=== PATIENT | female | born 1965 | race Two or more races ===

== ENCOUNTER 2016-12-26 15:25 | Emergency (ER) | payer MEDICAID ==
[~2016-12-26] VITALS: Ht 154.9 cm; Wt 135.2 kg
[2016-12-26 16:00] VITALS: BP 164/82
[2016-12-26] MEDS ORDERED: IBUPROFEN600 MG ORAL (16:59)
[2016-12-26] MEDS ORDERED: CYCLOBENZAPRINE10 MG ORAL (16:59)
[2016-12-26 17:00] VITALS: BP 158/83
[2016-12-26 17:07] VITALS: BP 158/83
--- NOTE | 2016-12-26 21:07 | Emergency Room Report ---
History of Present Illness General Chief Complaint: Chest Pain Source: Patient Present Illness HPI 51-year-old female presents ED for evaluation. Patient states she feels pain in her right shoulder which is radiating across her chest. Pain is an 8 at 10, sharp, worse with movement. Patient feels pain is worse with twisting and bending. Denies shortness of breath. Denies history of hypertension and diabetes. No other aggravating or relieving factors. Denies any other associated symptoms Allergies: Coded Allergies: No Known Allergies (Unverified , 12/26/16) Patient History Past Medical History: DM Past Surgical History: none Pertinent Family History: none Social History: Denies: alcohol use, drug use, smoking Last Menstrual Period: 12/16/16 Now: No : 3 Para: 3 Immunizations: UTD Reviewed Nursing Documentation: PMH: Agreed, PSxH: Agreed Nursing Documentation-PMH Past Medical History: No History, Except For Hx Cardiac Problems: No - 2 HERNIATED DISCS Hx Hypertension: No Hx Pacemaker: No Hx Asthma: No Hx COPD: No Hx Diabetes: Yes Hx Cancer: No Hx Gastrointestinal Problems: No Hx Dialysis: No History Of Psychiatric Problem: No Hx Neurological Problems: No Hx Cerebrovascular Accident: No Hx Seizures: No Review of Systems All Other Systems: negative except mentioned in HPI Physical Exam Vital Signs Date Time Temp Pulse Resp B/P Pulse Ox O2 Delivery O2 Flow Rate FiO2 12/26/16 15:29 98.1 95 22 164/82 96 Room Air Sp02 EP Interpretation: reviewed, normal General Appearance: no apparent distress, alert, GCS 15, non-toxic, obese Head: normocephalic ENT: normal ENT inspection Neck: normal inspection Respiratory: lungs clear, normal breath sounds, speaking full sentences, other - reproducible chest all pain Cardiovascular #1: regular rate, rhythm, no edema Gastrointestinal: normal inspection Rectal: deferred Genitourinary: no CVA tenderness Musculoskeletal: decreased range of motion - R shoulder, tender - R shoulder Neurologic: alert, oriented x3, responsive, motor strength/tone normal, sensory intact, speech normal Psychiatric: normal inspection Skin: normal inspection Lymphatic: normal inspection Medical Decision Making Diagnostic Impression: Primary Impression: Strain of chest wall Qualified Codes: S29.011A - Strain of muscle and tendon of front wall of thorax, initial encounter Additional Impression: Shoulder strain Qualified Codes: S46.911A - Strain of unspecified muscle, fascia and tendon at shoulder and upper arm level, right arm, initial encounter ER Course Hospital Course 51-year-old F presents to ED complaining of R shoulder pain and chest wall pain Differential diagnoses include: Fracture, dislocation, sprain, contusion Clinical course Patient placed on stretcher. After initial history and physical, I ordered EKG and R shoulder XRay EKG shows normal sinus no acute changes interpreted by me Shoulder x-ray unremarkable Clinical presentation consistent with shoulder strain and chest wall strain. Patient has no cardiac history with stable vitals. Reassurance given Diagnosis - strain of chest wall, shoulder strain Stable and discharged to home with prescription for Motrin, flexeril. apply heat. weight bear as tolerated. Followup with PMD. Return to ED if symptoms recur or worsen EKG Diagnostic Results Rate: normal Rhythm: NSR ST Segments: no acute changes ASA given to the pt in ED: No Rhythm Strip Diag. Results EP Interpretation: yes Rhythm: NSR, no PVC's, no ectopy Other X-Ray Diagnostic Results Other X-Ray Diagnostic Results : X-Ray ordered: R shoulder # of Views/Limited Vs Complete: 3 View Indication: Pain EP Interpretation: Yes Interpretation: no dislocation, no soft tissue swelling, no fractures Impression: No acute disease Interpreting ER Provider: Electronically signed by Johann Page MD Last Vital Signs Date Time Temp Pulse Resp B/P Pulse Ox O2 Delivery O2 Flow Rate FiO2 12/26/16 17:07 98.1 74 20 158/83 98 Room Air Status: improved Disposition: HOME, SELF-CARE Condition: Stable Scripts Cyclobenzaprine Hcl* (FLEXERIL*) 10 Mg Tablet 10 MG ORAL TID Y for Muscle Spasm, #20 TAB Prov: JOHANN PAGE M.D. 12/26/16 Ibuprofen* (MOTRIN*) 600 Mg Tablet 600 MG ORAL Q8H Y for For Pain, #30 TAB 0 Refills Prov: JOHANN PAGE M.D. 12/26/16 Patient Instructions: Chest Wall Pain, [id number] JOHANN PAGE M.D. Dec 26, 2016 21:07
--- NOTE | 2016-12-27 16:19 | Cardiology Report ---
APPROVED REPORT EKG Measurement Heart [id number] Normal sinus rhythm Normal ECG
--- NOTE | 2016-12-29 09:03 | Diagnostic Imaging Report ---
Indication: PAIN Technique: XRAY SHOULDER MIN 3V RIGHT Comparison: None. Findings: The osseous structures are intact. There is no fracture or destruction. The visualized joints are normal. The soft tissues are unremarkable. Impression: Normal.
== END 2016-12-26 17:07 | disposition home or self-care (01) ==
LOC: EMR 16:15
DX: S29.011A Strain of muscle and tendon of front wall of thorax, initial encounter (principal); S46.911A Strain of unspecified muscle, fascia and tendon at shoulder and upper arm level, right arm, initial encounter; E11.9 Type 2 diabetes mellitus without complications; E66.9 Obesity, unspecified; Z68.43 Body mass index [BMI] 50.0-59.9, adult; X58.XXXA Exposure to other specified factors, initial encounter; Y93.9 Activity, unspecified; Y92.9 Unspecified place or not applicable
CPT/HCPCS: 93005; 99284

== ENCOUNTER 2017-02-17 16:16 | Emergency (ER) | payer MEDICAID ==
[~2017-02-17] VITALS: Ht 154.9 cm; Wt 136.1 kg
[~2017-02-17 16:16] MED LIST: CYCLOBENZAPRINE10 MG ORAL; IBUPROFEN600 MG ORAL
[2017-02-17 16:49] VITALS: BP 145/80
--- NOTE | 2017-02-17 17:10 | Emergency Room Report ---
History of Present Illness General Chief Complaint: Female Urogenital Problems Source: Patient Present Illness HPI 51 YO Female presents to the ED c/o dysuria, bloating, and low abdominal/ uterine discomfort described as burning 8/10 in severity x 3 days. denies constipation or diarrhea, denies N/V/F/C. denies hematuria. pt. reports frequency. Pt. also reports cramping gas movement sensation, and increased flatulence since Wednesday. Pt. denies tenderness to the abdomen, she reports bladder fullness/ distention feeling with some burning. Denies blood in the stool, or dark tarry stools. Pt. reports hx of back surgery 20 years ago, pre- diabetic. Denies CP, Palpitations, LOC, AMS, dizziness, Changes in Vision, Sensation, paresthesias, or a sudden severe headache. Allergies: Coded Allergies: No Known Allergies (Unverified , 12/26/16) Patient History Past Medical History: see triage record Past Surgical History: none Pertinent Family History: none Last Menstrual Period: 01/26/17 Now: No : 3 Para: 3 Reviewed Nursing Documentation: PMH: Agreed, PSxH: Agreed Nursing Documentation-PMH Past Medical History: No History, Except For Hx Cardiac Problems: No - 2 HERNIATED DISCS Hx Hypertension: No Hx Pacemaker: No Hx Asthma: No Hx COPD: No Hx Diabetes: Yes Hx Cancer: No Hx Gastrointestinal Problems: No Hx Dialysis: No Hx Neurological Problems: No Hx Cerebrovascular Accident: No Hx Seizures: No Review of Systems All Other Systems: negative except mentioned in HPI Physical Exam Vital Signs Date Time Temp Pulse Resp B/P (MAP) Pulse Ox O2 Delivery O2 Flow Rate FiO2 02/17/17 16:49 97.7 81 20 145/80 97 Room Air Sp02 EP Interpretation: reviewed, normal General Appearance: no apparent distress, alert, GCS 15, non-toxic Head: normocephalic, atraumatic Eyes: bilateral eye normal inspection, bilateral eye PERRL ENT: hearing grossly normal, normal voice Neck: full range of motion Respiratory: lungs clear, normal breath sounds, speaking full sentences Cardiovascular #1: regular rate, rhythm Gastrointestinal: normal bowel sounds, non tender, soft, no guarding, no rebound, other - Negative Lowber signs, Negative MacBurney's sign, Negative Rosvigns Sign, Negative Psoas, No Peritoneal signs. Rectal: deferred Genitourinary: normal inspection, no CVA tenderness Musculoskeletal: back normal, gait/station normal, normal range of motion Neurologic: alert, oriented x3, responsive, motor strength/tone normal, sensory intact, speech normal Psychiatric: judgement/insight normal, memory normal, mood/affect normal Skin: normal color, no rash, warm/dry, well hydrated Lymphatic: no adenopathy Medical Decision Making PA Attestation Dr. diana is my supervising Physician whom patient management has been discussed with. Diagnostic Impression: Primary Impression: Urinary tract infection Qualified Codes: N30.01 - Acute cystitis with hematuria ER Course 51 YO Female presents to the ED c/o dysuria, bloating, and low abdominal/ uterine discomfort described as burning 8/10 in severity x 3 days. denies constipation or diarrhea, denies N/V/F/C. denies hematuria. pt. reports frequency. Pt. also reports cramping gas movement sensation, and increased flatulence since Wednesday. Pt. denies tenderness to the abdomen, she reports bladder fullness/ distention feeling with some burning. Denies blood in the stool, or dark tarry stools. Pt. reports hx of back surgery 20 years ago, pre- diabetic. Denies CP, Palpitations, LOC, AMS, dizziness, Changes in Vision, Sensation, paresthesias, or a sudden severe headache. Ddx considered but are not limited to UTi , Pyelo, STI, Stone, Cystitis Vital signs: are WNL, pt. is afebrile H&PE are most consistent with possible UTI , abdominal exam is otherwise normal ORDERS: - UA labs are attached : Moderate bacteria, increased leukocytes, and some RBC' s indicating acute cystitis/ urinary tract infection. ED INTERVENTIONS: -Pyridium PO -d/w pt. close outpatient follow up with her PMD. Return to the ED with worsening or new symptoms. DISCHARGE: At this time pt. is stable for d/c to home. Will provide printed patient care instructions, and any necessary prescriptions. Care plan and follow up instructions have been discussed with the patient prior to discharge. Labs Test 02/17/17 17:15 Urine Color Yellow Urine Appearance Slightly cloudy Urine pH 7 (4.5-8.0) Urine Specific [place] 1.010 (1.005-1.035) Urine Protein 1+ (NEGATIVE) Urine Glucose (UA) Negative (NEGATIVE) Urine Ketones 1+ (NEGATIVE) Urine Occult Blood 2+ (NEGATIVE) Urine Nitrite Negative (NEGATIVE) Urine Bilirubin Negative (NEGATIVE) Urine Urobilinogen 4 MG/DL (0.0-1.0) Urine Leukocyte Esterase 1+ (NEGATIVE) Urine RBC 2-4 /HPF (0 - 2) Urine WBC 2-4 /HPF (0 - 2) Urine Squamous Epithelial Cells Moderate /LPF (NONE/OCC) Urine Bacteria Moderate /HPF (NONE) Last Vital Signs Date Time Temp Pulse Resp B/P (MAP) Pulse Ox O2 Delivery O2 Flow Rate FiO2 02/17/17 16:49 97.7 81 20 145/80 97 Room Air Disposition: HOME, SELF-CARE Condition: Stable Scripts Simethicone* (SIMETHICONE*) 80 Mg Tab.chew 80 MG ORAL Q8H Y for GAS PAIN, #20 TAB 0 Refills Prov: Radha Amaya 02/17/17 Phenazopyridine Hcl* (PYRIDIUM*) 200 Mg Tablet 200 MG ORAL THREE TIMES A DAY for 3 Days, #9 TAB 0 Refills Prov: Radha Amaya 02/17/17 Nitrofurantoin Monohyd/M-Cryst* (MACROBID 100 MG*) 100 Mg Capsule 100 MG ORAL EVERY 12 HOURS for 5 Days, #10 CAP Prov: Radha Amaya. 02/17/17 Patient Instructions: Urinary Tract Infection Additional Instructions: Take medications as directed. Follow up with a Primary Care Provider in 3-5 days, even if your symptoms have resolved. --Please review list of primary care clinics, if you do not already have a primary care provider Pyridium will cause your urine to change color (Red/Riner), this is a normal side effect of the medication. Return sooner to ED if new symptoms occur, or current symptoms become worse. - Please note that this Emergency Department Report was dictated using Legend3Dribbon lap machine tender technology software, occasionally this can lead to erroneous entry secondary to interpretation by the dictation equipment. Radha Amaya Feb 17, 2017 17:10
[2017-02-17 18:07] LABS: APPEARANCE,URINE SLIGHTLY CLOUDY; KETONES,URINE 1+ (NEGATIVE); LEUKOCYTE ESTERASE ,URINE 1+ (NEGATIVE); NITRITE,URINE NEGATIVE (NEGATIVE); PH,URINE 7 (4.5-8.0); PROTEIN,URINE 1+ (NEGATIVE); UROBILINOGEN,URINE 4 MG/DL (0.0-1.0)
[2017-02-17] MEDS ORDERED: Phenazopyridine 200mg tab ORAL ONE (18:15)
[2017-02-17 18:27] LABS: BACTERIA,URINE MODERATE /HPF; SQUAMOUS EPITHELIAL CELL,UR MODERATE /LPF (NONE/OCC)
[2017-02-17] MEDS ORDERED: PHENAZOPYRIDIN200 MG ORAL (18:37)
[2017-02-17] MEDS ORDERED: NITROFURANTOIN100 M2 ORAL (18:37)
[2017-02-17] MEDS ORDERED: SIMETHICONE80 MG ORAL (18:37)
[2017-02-17 18:39] VITALS: BP 137/79
== END 2017-02-17 18:43 | disposition home or self-care (01) ==
LOC: EMR 17:15
DX: N39.0 Urinary tract infection, site not specified (principal); R30.0 Dysuria; E11.9 Type 2 diabetes mellitus without complications
CPT/HCPCS: 81003; 87086; 99284

== ENCOUNTER 2017-02-20 03:09 | Emergency (ER) | payer MEDICAID ==
[~2017-02-20] VITALS: Ht 154.9 cm; Wt 136.1 kg
[~2017-02-20 03:09] MED LIST changes: +NITROFURANTOIN100 M2 ORAL; +PHENAZOPYRIDIN200 MG ORAL; +SIMETHICONE80 MG ORAL
--- NOTE | 2017-02-20 03:40 | Emergency Room Report ---
History of Present Illness General Chief Complaint: Headache Source: Patient Present Illness HPI 51-year-old female history of cervical herniated discs, history of chronic back pain, presenting with right shoulder/neck pain for 2 days. Patient states pain is worse with movement of right shoulder and head turning. Patient states that he saw his spine doctor last week who told her that she may need surgery. Patient states that she took one Tylenol with codeine without relief. Denies any headache, blurry vision, numbness or tingling, motor weakness Allergies: Coded Allergies: No Known Allergies (Unverified , 12/26/16) Patient History Past Medical History: see triage record Past Surgical History: none Pertinent Family History: none Reviewed Nursing Documentation: PMH: Agreed, PSxH: Agreed Nursing Documentation-PMH Hx Cardiac Problems: No - 2 HERNIATED DISCS Hx Hypertension: No Hx Pacemaker: No Hx Asthma: No Hx COPD: No Hx Diabetes: Yes Hx Cancer: No Hx Gastrointestinal Problems: No Hx Dialysis: No Hx Neurological Problems: No Hx Cerebrovascular Accident: No Hx Seizures: No Review of Systems All Other Systems: negative except mentioned in HPI Physical Exam Vital Signs Date Time Temp Pulse Resp B/P (MAP) Pulse Ox O2 Delivery O2 Flow Rate FiO2 02/20/17 03:19 97.9 83 16 144/70 97 Room Air Sp02 EP Interpretation: reviewed, normal General Appearance: normal inspection, well appearing, no apparent distress, alert, GCS 15, non-toxic Head: normocephalic, atraumatic Eyes: bilateral eye normal inspection, bilateral eye PERRL, bilateral eye EOMI ENT: normal ENT inspection, normal pharynx, normal voice, moist mucus membranes Neck: supple, other - Right-sided cervical paraspinal tenderness extending to deltoid region, no midline tenderness Respiratory: normal inspection, lungs clear, normal breath sounds, no respiratory distress, no retraction, no wheezing, speaking full sentences, chest symmetrical Cardiovascular #1: normal inspection, regular rate, rhythm, no edema, normal capillary refill Cardiovascular #2: 2+ radial (R), 2+ radial (L) Gastrointestinal: normal inspection, non tender, soft, non-distended, no guarding Musculoskeletal: other - Right-sided deltoid tenderness, full range of motion right shoulder however pain exacerbated by active range of motion Neurologic: normal inspection, alert, oriented x3, responsive, motor strength/ tone normal, sensory intact, normal gait, speech normal Psychiatric: normal inspection, judgement/insight normal, memory normal Skin: normal inspection, normal color, no rash, warm/dry, well hydrated, normal turgor Medical Decision Making Diagnostic Impression: Primary Impression: Muscle spasms of neck ER Course 51-year-old female with history of herniated discs presenting with right neck/ shoulder pain DDX: Appears to be musculoskeletal pain No history of trauma no concern with fracture Plan: Pain control with Motrin and Robaxin ER course: Patient has remained stable during ED stay. Patient is feeling much better Disposition: Patient is to be discharged to home. Prescriptions given are motrin/robaxn Patient is instructed to follow up with their primary care doctor within 5 days. Please note that this Emergency Department Report was dictated using Puzzliumaerial erector technology software, occasionally this can lead to erroneous entry secondary to interpretation by the dictation equipment Last Vital Signs Date Time Temp Pulse Resp B/P (MAP) Pulse Ox O2 Delivery O2 Flow Rate FiO2 02/20/17 03:19 97.9 83 16 144/70 97 Room Air Disposition: HOME, SELF-CARE Condition: Improved Scripts Methocarbamol* (ROBAXIN-750*) 750 Mg Tablet 750 MG PO QID, #28 TAB 0 Refills Prov: Lucy Singer M.D. 02/20/17 Ibuprofen* (MOTRIN*) 600 Mg Tablet 600 MG ORAL Q8H Y for For Pain, #30 TAB 0 Refills Prov: Lucy Singer M.D. 02/20/17 Lucy Singer M.D. Feb 20, 2017 03:40
[2017-02-20] MEDS ORDERED: Methocarbamol 750mg tab ORAL ONE (03:45)
[2017-02-20 04:00] VITALS: BP 132/70
[2017-02-20] MEDS ORDERED: IBUPROFEN600 MG ORAL (04:47)
[2017-02-20] MEDS ORDERED: ROBAXIN-750750 MG PO (04:47)
[2017-02-20 04:52] VITALS: BP 138/74
[2017-02-20 05:00] VITALS: BP 138/74
== END 2017-02-20 05:00 | disposition home or self-care (01) ==
LOC: EMR 03:52
DX: M62.838 Other muscle spasm (principal); M54.2 Cervicalgia; R51 Headache; M25.511 Pain in right shoulder; E11.9 Type 2 diabetes mellitus without complications
CPT/HCPCS: 99284

== ENCOUNTER 2017-12-19 19:14 | Emergency (ER) | payer MEDICAID ==
[~2017-12-19] VITALS: Ht 154.9 cm; Wt 136.1 kg
[~2017-12-19 19:14] MED LIST changes: +ROBAXIN-750750 MG PO
[2017-12-19] MEDS ORDERED: GABAPENTIN300 MG ORAL (19:26)
[2017-12-19] MEDS ORDERED: PANTOPRAZOLE SO40 MG ORAL (19:26)
[2017-12-19] MEDS ORDERED: IBUPROFEN600 MG ORAL (19:26)
--- NOTE | 2017-12-19 19:54 | Emergency Room Report ---
History of Present Illness General Chief Complaint: Pain Source: Patient Present Illness HPI 52-year-old female presents to the emergency department complaining of 10 out of 10 in severity right shoulder pain that is exacerbated upon raising her arm above the 90 level. Patient denies appreciable trauma or fall. Patient states that she has had a history of shoulder pain in the past however she cannot recall which shoulder she states that she took Robaxin and ibuprofen which was previously prescribed to her last year with no relief of her symptoms. Patient denies fevers or chills. Denies paresthesias however she does report shooting electrical type pain upon raising the arm. Denies rashes. Denies numbness tingling or loss of sensation or gross motor movements of the extremities, incontinence of bowel or bladder. Denies CP, Palpitations, LOC, AMS , dizziness, Changes in Vision, weakness or a sudden severe headache. Allergies: Coded Allergies: No Known Allergies (Unverified , 12/26/16) Patient History Past Medical History: see triage record Past Surgical History: none Pertinent Family History: none Last Menstrual Period: 11/29/17 Now: No Reviewed Nursing Documentation: PMH: Agreed; PSxH: Agreed Nursing Documentation-PMH Past Medical History: No History, Except For Hx Cardiac Problems: No - 2 HERNIATED DISCS, left knee surgery Hx Hypertension: No Hx Pacemaker: No Hx Asthma: No Hx COPD: No Hx Diabetes: Yes Hx Cancer: No Hx Gastrointestinal Problems: No Hx Dialysis: No Hx Neurological Problems: No Hx Cerebrovascular Accident: No Hx Seizures: No Review of Systems All Other Systems: negative except mentioned in HPI Physical Exam Vital Signs Date Time Temp Pulse Resp B/P (MAP) Pulse Ox O2 Delivery O2 Flow Rate FiO2 12/19/17 19:20 98.7 88 16 154/80 97 Room Air 98.8 Sp02 EP Interpretation: reviewed, normal General Appearance: no apparent distress, alert, GCS 15, non-toxic Head: normocephalic, atraumatic ENT: hearing grossly normal, normal voice Neck: full range of motion Respiratory: lungs clear, normal breath sounds, speaking full sentences Cardiovascular #1: regular rate, rhythm, normal capillary refill Cardiovascular #2: 2+ radial (R), 2+ radial (L) Musculoskeletal: back normal, gait/station normal, normal range of motion, other - FROM - pain exacerbated when arm raised above the 90* plane, tender - Right shoulder posteriorly and laterally Neurologic: alert, oriented x3, responsive, motor strength/tone normal, sensory intact, normal gait, speech normal, grossly normal Psychiatric: judgement/insight normal Skin: normal color, no rash, warm/dry, well hydrated Medical Decision Making DICKSON diana is my supervising Physician whom patient management has been discussed with. Diagnostic Impression: Primary Impression: Shoulder impingement syndrome Qualified Codes: M75.41 - Impingement syndrome of right shoulder Additional Impression: Shoulder pain Qualified Codes: M25.511 - Pain in right shoulder ER Course 52-year-old female presents to the emergency department complaining of 10 out of 10 in severity right shoulder pain that is exacerbated upon raising her arm above the 90 level. Patient denies appreciable trauma or fall. Patient states that she has had a history of shoulder pain in the past however she cannot recall which shoulder she states that she took Robaxin and ibuprofen which was previously prescribed to her last year with no relief of her symptoms. Patient denies fevers or chills. Denies paresthesias however she does report shooting electrical type pain upon raising the arm. Denies rashes. Denies numbness tingling or loss of sensation or gross motor movements of the extremities, incontinence of bowel or bladder. Denies CP, Palpitations, LOC, AMS , dizziness, Changes in Vision, weakness or a sudden severe headache. Ddx considered but are not limited to Fracture, dislocation, contusion, Sprain/ Strain/Spasm, Rotator cuff injury, before meals separation, impingement syndrome just to name a few Vital signs: are WNL, pt. is afebrile H&PE are most consistent with musculoskeletal injury will perform imaging to r/ o fractures/dislocations. ORDERS: - X-ray Right shoulder 3 views - negative for fx, Dislocation, or significant soft tissue injury, per preliminary read in ED, and signed by DICKSON Amaya, my supervising physician has reviewed, and agrees with my interpretation. ED INTERVENTIONS: - Soma PO -Lidoderm TP - Right arm Sling applied by RN Pt. remains neurovascularly intact. DISCHARGE: At this time pt. is stable for d/c to home. Will provide printed patient care instructions, and any necessary prescriptions. Care plan and follow up instructions have been discussed with the patient prior to discharge. Other X-Ray Diagnostic Results Other X-Ray Diagnostic Results : X-Ray ordered: Right Shoulder # of Views/Limited Vs Complete: 3 View Indication: Pain EP Interpretation: Yes PA Xray: Interpretation reviewed, by supervising MD, and agrees with findings. Interpretation: no dislocation, no soft tissue swelling, no fractures Impression: No acute disease Last Vital Signs Date Time Temp Pulse Resp B/P (MAP) Pulse Ox O2 Delivery O2 Flow Rate FiO2 12/19/17 19:20 98.7 88 16 154/80 97 Room Air 98.8 Disposition: HOME, SELF-CARE Condition: Stable Scripts Diclofenac Sod* (VOLTAREN*) 50 Mg Tablet.dr 50 MG ORAL THREE TIMES A DAY, #21 TAB Prov: Radha Amaya 12/19/17 Lidocaine (Lidoderm) 1 Each Adh..patch 1 PATCH TOPIC DAILY, #30 PATCH 0 Refills Patch(es) may remain in place for up to 12 hours in any 24-hour period. Prov: Radha Amaya 12/19/17 Methocarbamol* (ROBAXIN*) 500 Mg Tablet 1000 MG PO TID, #42 TAB 0 Refills Prov: Radha Amaya 12/19/17 Referrals: [facility]ERR[facility] (PCP) Patient Instructions: Shoulder Pain, [id number] Additional Instructions: Take medications as directed. Follow up with a Primary Care Provider in 3-5 days, even if your symptoms have resolved. --Please review list of primary care clinics, if you do not already have a primary care provider Return sooner to ED if new symptoms occur, or current symptoms become worse. Do not drink alcohol, drive, or operate heavy machinery while taking Robaxin as this may cause drowsiness. - Please note that this Emergency Department Report was dictated using Invenradigital photographer technology software, occasionally this can lead to erroneous entry secondary to interpretation by the dictation equipment. Radha Amaya Dec 19, 2017 19:54
[2017-12-19] MEDS ORDERED: ROBAXIN500 MG PO (20:45)
[2017-12-19] MEDS ORDERED: LIDODERM700 M1 TOPIC (20:45)
[2017-12-19] MEDS ORDERED: DICLOFENAC SODI50 MG ORAL (20:45)
[2017-12-19 20:52] VITALS: BP 164/73
[2017-12-19 20:55] VITALS: BP 164/73
--- NOTE | 2017-12-20 09:36 | Diagnostic Imaging Report ---
Indication: Pain Technique: 3 views of the right shoulder Comparison: none Findings: No acute fractures. No dislocations. The joint spaces are preserved. Impression: Negative
== END 2017-12-19 20:55 | disposition home or self-care (01) ==
LOC: EMR 19:44
DX: M75.41 Impingement syndrome of right shoulder (principal); E11.9 Type 2 diabetes mellitus without complications
CPT/HCPCS: 99283

== ENCOUNTER 2018-05-24 09:25 | Emergency (ER) | payer MEDICAID ==
[~2018-05-24] VITALS: Ht 154.9 cm; Wt 136.1 kg
[~2018-05-24 09:25] MED LIST changes: +DICLOFENAC SODI50 MG ORAL; +GABAPENTIN300 MG ORAL; +LIDODERM700 M1 TOPIC; +PANTOPRAZOLE SO40 MG ORAL; +ROBAXIN500 MG PO
--- NOTE | 2018-05-24 10:13 | Emergency Room Report ---
History of Present Illness General Chief Complaint: Pain Source: Patient Present Illness HPI Patient presents with complaints of left ear pressure Reports that she has similar discomfort about one month ago however that resolved Over the past 2 days she felt increased pressure again She had a recent URI With runny nose a mild congestion Denies any chest pain denies any back or flank pain Patient has also complained of some lower suprapubic discomfort and urinary frequency requesting check of the urine Allergies: Coded Allergies: No Known Allergies (Unverified , 12/26/16) Patient History Past Medical History: see triage record Pertinent Family History: none Reviewed Nursing Documentation: PMH: Agreed; PSxH: Agreed Nursing Documentation-PMH Past Medical History: No History, Except For Hx Cardiac Problems: No - 2 HERNIATED DISCS, left knee surgery Hx Hypertension: No Hx Pacemaker: No Hx Asthma: No Hx COPD: No Hx Diabetes: Yes Hx Cancer: No Hx Gastrointestinal Problems: No Hx Dialysis: No Hx Neurological Problems: No Hx Cerebrovascular Accident: No Hx Seizures: No Review of Systems All Other Systems: negative except mentioned in HPI Physical Exam Vital Signs Date Time Temp Pulse Resp B/P (MAP) Pulse Ox O2 Delivery O2 Flow Rate FiO2 05/24/18 09:30 97.9 76 18 142/68 98 Room Air Sp02 EP Interpretation: reviewed, normal General Appearance: well appearing, no apparent distress Head: normocephalic, atraumatic Eyes: bilateral eye PERRL, bilateral eye EOMI ENT: hearing grossly normal, normal pharynx, TMs + canals normal Neck: supple Respiratory: lungs clear Cardiovascular #1: regular rate, rhythm Gastrointestinal: soft Musculoskeletal: normal inspection Neurologic: alert, oriented x3 Skin: normal color, no rash Lymphatic: no adenopathy Medical Decision Making Diagnostic Impression: Primary Impression: Earache on left ER Course Given the patient's history and exam appears that the patient had some small month of fluid behind the left ear No obvious infectious process likely secondary to her recent URI Urine sample does not show any infectious pathology and patient stable for close outpatient follow-up Labs Test 05/24/18 09:45 Urine Color Pale yellow Urine Appearance Clear Urine pH 8 (4.5-8.0) Urine Specific [place] 1.010 (1.005-1.035) Urine Protein 2+ (NEGATIVE) Urine Glucose (UA) Negative (NEGATIVE) Urine Ketones Negative (NEGATIVE) Urine Blood 5+ (NEGATIVE) Urine Nitrite Negative (NEGATIVE) Urine Bilirubin Negative (NEGATIVE) Urine Urobilinogen Normal MG/DL (0.0-1.0) Urine Leukocyte Esterase 1+ (NEGATIVE) Urine RBC 10-15 /HPF (0 - 2) Urine WBC 2-4 /HPF (0 - 2) Urine Squamous Epithelial Cells Few /LPF (NONE/OCC) Urine Bacteria Occasional /HPF (NONE) Last Vital Signs Date Time Temp Pulse Resp B/P (MAP) Pulse Ox O2 Delivery O2 Flow Rate FiO2 05/24/18 09:30 97.9 76 18 142/68 98 Room Air Status: improved Disposition: HOME, SELF-CARE Condition: Improved Scripts Pseudoephedrine Hcl* (SUDAFED*) 60 Mg Tablet 60 MG PO DAILY for 7 Days, TAB Prov: Thalia Issa DO 05/24/18 Ibuprofen* (MOTRIN*) 600 Mg Tablet 600 MG ORAL Q8H PRN for For Pain, #20 TAB 0 Refills Prov: Thalia Issa DO 05/24/18 Additional Instructions: Patient is provided with the discharge instructions notified to follow up with primary doctor in the next 2-3 days otherwise return to the er with any worsening symptoms. Please note that this report is being documented using [employer] technology. This can lead to erroneous entry secondary to incorrect interpretation by the dictating instrument. Thalia Issa DO May 24, 2018 10:13
[2018-05-24 10:38] LABS: APPEARANCE,URINE CLEAR; BILIRUBIN, URINE NEGATIVE (NEGATIVE); COLOR,URINE PALE YELLOW; GLUCOSE, URINE (UA) NEGATIVE (NEGATIVE); KETONES,URINE NEGATIVE (NEGATIVE); LEUKOCYTE ESTERASE ,URINE 1+ (NEGATIVE); NITRITE,URINE NEGATIVE (NEGATIVE); PH,URINE 8 (4.5-8.0); PROTEIN,URINE 2+ (NEGATIVE); UROBILINOGEN,URINE NORMAL MG/DL (0.0-1.0)
[2018-05-24] MEDS ORDERED: IBUPROFEN600 MG ORAL (11:13)
[2018-05-24] MEDS ORDERED: PSEUDOEPHEDRINE60 MG PO (11:13)
[2018-05-24 11:18] VITALS: BP_SYST 135; BP_SYST 142; BP_DIAS 68; BP_DIAS 74
== END 2018-05-24 11:18 | disposition home or self-care (01) ==
LOC: EMR 10:09
DX: H92.02 Otalgia, left ear (principal); E11.9 Type 2 diabetes mellitus without complications
CPT/HCPCS: 81003; 99283

== ENCOUNTER 2018-07-13 10:12 | Emergency (ER) | payer MEDICAID ==
[~2018-07-13] VITALS: Ht 154.9 cm; Wt 136.1 kg
[~2018-07-13 10:12] MED LIST changes: +PSEUDOEPHEDRINE60 MG PO
--- NOTE | 2018-07-13 10:39 | NUR ---
ED Nurse Note: Pt walked in to ED due to pain on back that radiated to right side of abdomen since Sun. Denies any urinary problems. Rating the pain a 10/10 in the back.
[2018-07-13 10:40] VITALS: BP 180/90
[2018-07-13] MEDS ORDERED: Pseudoephedrine 30mg tab ORAL ONE (10:45)
[2018-07-13] MEDS ORDERED: Ketorolac 60mg Inj IM ONE (10:45)
--- NOTE | 2018-07-13 10:47 | Emergency Room Report ---
History of Present Illness General Chief Complaint: Back Pain-No Injury Source: Patient Present Illness HPI The presents with 2 problems. One is back pain. She got prescriptions here for Robaxin in the past. The pain has increased at this time. She denies any fever, numbness, weakness, incontinence, blood thinners, oncologic problems. She has a history of 2 herniated disks. The second problem is that she has crackling in her ears. She's been cleaning them aggressively. She denies sore throat. No chills, chest pain, palpitations, nausea, vomiting, diarrhea, dysuria, abdominal pain, shortness of breath, depression, visual changes, headache. Allergies: Coded Allergies: No Known Allergies (Unverified , 12/26/16) Patient History Past Medical History: see triage record Past Surgical History: other - knee surgery Social History: Denies: smoking Social History Narrative from home Last Menstrual Period: 07/02/18 Reviewed Nursing Documentation: PMH: Agreed; PSxH: Agreed Nursing Documentation-PMH Past Medical History: No History, Except For Hx Cardiac Problems: No - 2 HERNIATED DISCS, left knee surgery Hx Hypertension: No Hx Pacemaker: No Hx Asthma: No Hx COPD: No Hx Cancer: No Hx Gastrointestinal Problems: No Hx Dialysis: No History Of Psychiatric Problem: Yes - depression Hx Neurological Problems: No Hx Cerebrovascular Accident: No Hx Seizures: No Review of Systems All Other Systems: negative except mentioned in HPI Physical Exam Vital Signs Date Time Temp Pulse Resp B/P (MAP) Pulse Ox O2 Delivery O2 Flow Rate FiO2 07/13/18 10:16 98.2 93 18 181/93 96 Room Air Sp02 EP Interpretation: reviewed, normal General Appearance: well appearing, no apparent distress, GCS 15 Head: normocephalic, atraumatic Eyes: bilateral eye normal inspection, bilateral eye PERRL ENT: hearing grossly normal, normal voice, moist mucus membranes, other - Ear canals somewhat edematous without significant erythema, tympanic membranes with some clear fluid Neck: full range of motion, supple Respiratory: lungs clear, no respiratory distress, speaking full sentences Cardiovascular #1: regular rate, rhythm Cardiovascular #2: 2+ radial (R) Gastrointestinal: normal inspection Genitourinary: no CVA tenderness Musculoskeletal: no calf tenderness, other - Tender lumbar area. straight leg raise negative bilaterally. Paraspinous tenderness and some muscle spasm. No point tenderness Neurologic: alert, oriented x3, motor strength/tone normal, DTRs symmetric, sensory intact, normal gait Psychiatric: mood/affect normal Reflexes: 2+ knee (R), 2+ knee (L); 1+ ankle (R), 1+ ankle (L) Skin: no rash Medical Decision Making Diagnostic Impression: Primary Impression: Back pain Qualified Codes: M54.5 - Low back pain Additional Impression: Chronic serous otitis media Qualified Codes: H65.23 - Chronic serous otitis media, bilateral ER Course Patient presents with 2 problems. The back pain seems to be an exacerbation of her chronic back pain with history of disc disease. Differential also includes muscle spasm. There are no red flag symptoms. The ear exam is consistent with chronic serous otitis. Also there is minimal inflammation of the ear canals however there is no pinna tenderness. Urinalysis is evaluated. Urinalysis clear. Discussed findings with patient and treatment plan. Patient is stable for outpatient observation and treatment. Laboratory Tests Test 07/13/18 11:14 Urine Color Pale yellow Urine Appearance Clear Urine pH 6 (4.5-8.0) Urine Specific [place] 1.015 (1.005-1.035) Urine Protein 3+ (NEGATIVE) H Urine Glucose (UA) Negative (NEGATIVE) Urine Ketones Negative (NEGATIVE) Urine Blood 5+ (NEGATIVE) H Urine Nitrite Negative (NEGATIVE) Urine Bilirubin Negative (NEGATIVE) Urine Urobilinogen Normal MG/DL (0.0-1.0) Urine Leukocyte Esterase 1+ (NEGATIVE) H Urine RBC 5-10 /HPF (0 - 2) H Urine WBC 2-4 /HPF (0 - 2) Urine Squamous Epithelial Cells Few /LPF (NONE/OCC) Urine Bacteria Occasional /HPF (NONE) Last Vital Signs Date Time Temp Pulse Resp B/P (MAP) Pulse Ox O2 Delivery O2 Flow Rate FiO2 07/13/18 13:43 98.1 88 22 135/75 99 Room Air Status: improved Disposition: HOME, SELF-CARE Condition: Improved Scripts Chlorpheniramine Maleate (CHLOR-TRIMETON) 4 Mg Tablet 4 MG PO Q6HR PRN for ear popping, #20 TAB Prov: Kendrick Barton MD 07/13/18 Methocarbamol* (ROBAXIN*) 500 Mg Tablet 500 MG PO TID, #10 TAB 0 Refills Prov: Kendrick Barton MD 2/20/19 Ibuprofen* (MOTRIN*) 600 Mg Tablet 600 MG ORAL Q6H PRN for For Pain, #20 TAB Prov: Kendrick Barton MD 07/13/18 Kendrick Barton MD Jul 13, 2018 10:47
[2018-07-13 11:38] LABS: APPEARANCE,URINE CLEAR; BILIRUBIN, URINE NEGATIVE (NEGATIVE); COLOR,URINE PALE YELLOW; GLUCOSE, URINE (UA) NEGATIVE (NEGATIVE); KETONES,URINE NEGATIVE (NEGATIVE); LEUKOCYTE ESTERASE ,URINE 1+ (NEGATIVE); NITRITE,URINE NEGATIVE (NEGATIVE); PH,URINE 6 (4.5-8.0); PROTEIN,URINE 3+ (NEGATIVE); UROBILINOGEN,URINE NORMAL MG/DL (0.0-1.0)
[2018-07-13] MEDS ORDERED: ROBAXIN500 MG PO (13:28)
[2018-07-13] MEDS ORDERED: IBUPROFEN600 MG ORAL (13:28)
[2018-07-13] MEDS ORDERED: CHLOR-TRIMETON4 MG PO (13:28)
--- NOTE | 2018-07-13 13:35 | NUR ---
ER DISCHARGE NOTE: Patient is cleared to be discharged per ERMD, pt is aox4, on room air, with stable vital signs. pt was given dc and prescription instructions, pt was able to verbalize understanding, pt id band removed without complications. pt is able to ambulate with steady gait. pt took all belongings.
[2018-07-13 13:43] VITALS: BP 135/75
== END 2018-07-13 13:35 | disposition home or self-care (01) ==
LOC: EMR 11:44
DX: M54.9 Dorsalgia, unspecified (principal); G89.29 Other chronic pain; H65.23 Chronic serous otitis media, bilateral; F32.9 Major depressive disorder, single episode, unspecified
CPT/HCPCS: 81003; 96372; 99283